=== PATIENT | male | born 2000 | race Caucasian/White ===

== ENCOUNTER 2022-11-18 10:34 | Emergency (ER) | payer SELFPAY ==
[~2022-11-18] VITALS: Ht 165.1 cm; Wt 80.0 kg
[2022-11-18 12:45] LABS: HEMATOCRIT. 32.2 % (42.0-52.0); HEMOGLOBIN. 10.1 g/dL (14.0-18.0); MEAN CORPUSCULAR HEMOGLOBIN 21.2 pg (28.0-32.0); MEAN CORPUSCULAR VOLUME 67.4 fL (80.0-94.0); MEAN PLATELET VOLUME 8.5 fl (7.4-10.4); PLATELET 478 x1000/uL (130-400); RED BLOOD CELL COUNT 4.78 mill/uL (4.7-6.1); RED CELL DISTRIBUTION WIDTH 18.4 % (11.6-14.6)
[2022-11-18 12:47] LABS: CHLORIDE 100 mEq/L (98-107)
[2022-11-18 13:37] LABS: PLATELET ESTIMATE INCREASED
[2022-11-18] MEDS ORDERED: POLY17PO3 MT (16:03)
[2022-11-18] MEDS ORDERED: NA P133E4 RC (16:03)
[2022-11-18] MEDS ORDERED: DOCU-138 MT (16:03)
[2022-11-18 16:11] VITALS: BP 148/71
== END 2022-11-18 16:14 | disposition home or self-care (01) ==
LOC: ER 12:27
DX: K62.5 Hemorrhage of anus and rectum (principal); K59.00 Constipation, unspecified
CPT/HCPCS: 36415; 80053; 83690; 85025; 99283; Z7610